=== PATIENT | female | born 1965 | race Caucasian/White ===

== ENCOUNTER 2020-11-22 14:00 | Emergency (ER) | payer MEDICARE, OTHER ==
[2020-11-22] MEDS ORDERED: MEDROL 4MG DOSEP4 MG PO (17:39)
== END 2020-11-22 18:05 | disposition home or self-care (01) ==
LOC: FER 14:00
DX: M25.511 Pain in right shoulder (principal); M79.641 Pain in right hand; E03.9 Hypothyroidism, unspecified; G89.29 Other chronic pain; K21.9 Gastro-esophageal reflux disease without esophagitis; M10.9 Gout, unspecified; Z88.0 Allergy status to penicillin; Z79.899 Other long term (current) drug therapy; Z79.891 Long term (current) use of opiate analgesic
CPT/HCPCS: 73030; 96372; J1100; J1885